=== PATIENT | male | born 1945 | race Caucasian/White ===

== ENCOUNTER 2017-07-03 19:42 | Inpatient (IN) | payer OTHER ==
[~2017-07-03] VITALS: Ht 180.3 cm; Wt 114.0 kg
[~2017-07-03 19:42] MED LIST: ASP325 PO; GLU500 PO; LOP50 PO; NIT0.3 SL; PRA20 PO; SELENIUM PO; [UNRECOGNIZED DRUG - CODE] PO
[2017-07-03 20:59] LABS: BASOPHIL % 0.4 % (0-2); PLATELET COUNT 187 x10^3mcL (130-400)
[2017-07-03 21:06] LABS: RED CELL DISTRIBUTION WIDTH 16.2 % (11.5-14.5)
[2017-07-03 21:19] LABS: CALCIUM 8.5 mg/dL (8.5-10.1); CARBON DIOXIDE 23.3 mmol/L (21-32); CHLORIDE SERUM 104 mmol/L (98-107); GLUCOSE SERUM 104 mg/dL (74-106); POTASSIUM SERUM 3.8 mmol/L (3.5-5.1); SODIUM SERUM 139 mmol/L (136-145)
[2017-07-03 21:24] LABS: ALBUMIN 3.8 g/dL (3.4-5.0); ALKALINE PHOSPHATASE 73 U/L (46-116); ALT/SGPT 18 U/L (16-63); AST/SGOT 17 U/L (15-37); BILIRUBIN TOTAL 0.2 mg/dL (0.20-1.00); TOTAL PROTEIN, SERUM 7.2 g/dL (6.4-8.2)
[2017-07-03] MEDS ORDERED: NEURONTIN800 MG PO (21:55)
[2017-07-03] MEDS ORDERED: ASPIRIN81 MG PO (21:56)
[2017-07-03] MEDS ORDERED: PRAVASTATIN SOD10 M1 PO (21:57)
[2017-07-03] MEDS ORDERED: ELIQUIS5 MG PO (21:58)
[2017-07-03 22:11] LABS: MAGNESIUM 2.1 mg/dL (1.8-2.4); PHOSPHOROUS 3.9 mg/dL (2.5-4.9)
[2017-07-03 22:17] LABS: CHOLESTEROL/HDL RATIO 4.9
[2017-07-03 22:20] LABS: T3 TOTAL 0.88 ng/mL
[2017-07-03 22:23] LABS: FREE T4 1.05 ng/dL (0.76-1.46); FREE THYROXINE INDEX 1.9 ug/dL (1.4-4.5); T4(THYROXINE) 5.9 ug/dL (4.7-13.3)
[2017-07-03 22:34] VITALS: BP 130/65
[2017-07-03 22:40] VITALS: Ht 180.3 cm; Wt 114.0 kg
[2017-07-04 00:26] LABS: UA SPECIFIC GRAVITY <=1.005 (1.005-1.035); microscopic required? YES; urine erythrocyte 2+ (NEGATIVE)
[2017-07-04 00:32] LABS: AMPHETAMINE QUAL UR NONE DETECTED (NEG <=1000)
[2017-07-04 02:00] LABS: IRON 44 ug/dL (65-170); TOTAL IRON BINDING CAPACITY 303 ug/dL (250-450)
[2017-07-04 02:19] LABS: RED BLOOD CELLS 3.82 M/mm3 (4.52-5.90)
[2017-07-04 06:39] LABS: BASOPHIL % 0.3 % (0-2); PLATELET COUNT 161 x10^3mcL (130-400)
[2017-07-04 06:41] VITALS: BP 131/59
[2017-07-04 06:45] LABS: RED CELL DISTRIBUTION WIDTH 16.5 % (11.5-14.5)
[2017-07-04 06:58] LABS: CARBON DIOXIDE 25.1 mmol/L (21-32); CHLORIDE SERUM 107 mmol/L (98-107); GLUCOSE SERUM 82 mg/dL (74-106); MAGNESIUM 2.1 mg/dL (1.8-2.4); PHOSPHOROUS 4.2 mg/dL (2.5-4.9); POTASSIUM SERUM 3.8 mmol/L (3.5-5.1); SODIUM SERUM 141 mmol/L (136-145)
[2017-07-04 08:26] VITALS: BP 109/54
[2017-07-04 13:12] VITALS: BP 144/45
[2017-07-04 17:10] VITALS: BP 132/69
[2017-07-05 06:34] VITALS: BP 115/37
[2017-07-05 09:56] VITALS: BP 139/62
[2017-07-05] MEDS ORDERED: FLE10 PO (12:20)
[2017-07-05] MEDS ORDERED: FER300 PO (12:21)
[2017-07-05] MEDS ORDERED: ZES5 PO (12:21)
[2017-07-05] MEDS ORDERED: VITC PO (12:22)
[2017-07-05] MEDS ORDERED: LEV250 PO (12:25)
[2017-07-05] MEDS ORDERED: LAC PO (12:25)
[2017-07-05 13:53] VITALS: BP 108/64
[2017-07-05 17:53] VITALS: BP 103/37
[2017-07-05 20:39] VITALS: BP 141/62
== END 2017-07-06 04:00 | disposition left against medical advice (07) | DRG 205 ==
LOC: ED 19:42 → DU 21:22 → MU 07-05 21:42
PROVIDERS: Emergency Medicine; Family Medicine
DX: M94.0 Chondrocostal junction syndrome [Tietze] (principal); N17.0 Acute kidney failure with tubular necrosis; N39.0 Urinary tract infection, site not specified; E11.40 Type 2 diabetes mellitus with diabetic neuropathy, unspecified; E78.5 Hyperlipidemia, unspecified; I25.10 Atherosclerotic heart disease of native coronary artery without angina pectoris; I50.9 Heart failure, unspecified; I11.0 Hypertensive heart disease with heart failure; Z95.5 Presence of coronary angioplasty implant and graft; I25.2 Old myocardial infarction; Z86.73 Personal history of transient ischemic attack (TIA), and cerebral infarction without residual deficits; Z88.8 Allergy status to other drugs, medicaments and biological substances; Z86.711 Personal history of pulmonary embolism; Z82.49 Family history of ischemic heart disease and other diseases of the circulatory system; Z87.891 Personal history of nicotine dependence; D63.8 Anemia in other chronic diseases classified elsewhere; E66.9 Obesity, unspecified; R31.9 Hematuria, unspecified; E11.65 Type 2 diabetes mellitus with hyperglycemia; Z85.820 Personal history of malignant melanoma of skin; E83.51 Hypocalcemia
CPT/HCPCS: 82962; 83880; 84439; J1956; J2270; J2405; J3490; J7030; Q0092; Q0162